=== PATIENT | male | born 1985 | race Caucasian/White ===

== ENCOUNTER 2018-08-24 21:31 | Emergency (ER) | payer MEDICAID ==
[~2018-08-24] VITALS: Ht 175.3 cm; Wt 86.0 kg
[2018-08-24] MEDS ORDERED: SODIUM CHLORIDE 0.9% 1,000 ML IV ONE (21:44)
[2018-08-24 22:14] LABS: BASOPHILS % 0.8 % (0.0-2.0); EOSINOPHILS % 1.3 % (0.0-5.0); HEMATOCRIT. 44.2 % (42.0-52.0); HEMOGLOBIN. 15.1 g/dL (14.0-18.0); LYMPHOCYTES % 34.4 % (20.0-50.0); MEAN CORPUSCULAR HEMOGLOBIN 30.9 pg (28.0-32.0); MEAN CORPUSCULAR VOLUME 90.3 fL (80.0-94.0); MEAN PLATELET VOLUME 8.1 fl (7.4-10.4); MONOCYTES % 8.2 % (2.0-8.0); NEUTROPHILS % 55.3 % (40.0-76.0); PLATELET 231 x1000/uL (130-400); RED BLOOD CELL COUNT 4.89 mill/uL (4.7-6.1); RED CELL DISTRIBUTION WIDTH 14.5 % (11.6-14.6)
[2018-08-24 22:20] LABS: CHLORIDE 106 mEq/L (98-107)
[2018-08-24 22:26] LABS: ETHANOL BLOOD 255 mg/dL
[2018-08-24 22:53] LABS: *AMPHETAMINES SCREEN URINE PRESUMTIVE POSITIVE (NEGATIVE)
[2018-08-24 22:54] LABS: *BARBITURATES SCREEN URINE NEGATIVE (NEGATIVE); *BENZODIAZEPINES SCREEN URINE PRESUMTIVE POSITIVE (NEGATIVE); *COCAINE SCREEN URINE NEGATIVE (NEGATIVE); CANNABINOID URINE SCREEN NEGATIVE (NEGATIVE); METHADONE URINE SCREEN NEGATIVE (NEGATIVE); OPIATES URINE SCREEN NEGATIVE (NEGATIVE); PHENCYCLIDINE URINE SCREEN NEGATIVE (NEGATIVE)
[2018-08-25 07:50] VITALS: BP 120/80
== END 2018-08-25 08:52 | disposition home or self-care (01) ==
LOC: ER 21:31
DX: T40.1X2A Poisoning by heroin, intentional self-harm, initial encounter (principal); T40.4X2A Poisoning by other synthetic narcotics, intentional self-harm, initial encounter; F10.10 Alcohol abuse, uncomplicated; Y90.8 Blood alcohol level of 240 mg/100 ml or more; F15.10 Other stimulant abuse, uncomplicated; Y93.89 Activity, other specified; Y92.89 Other specified places as the place of occurrence of the external cause
CPT/HCPCS: 36415; 80053; 80305; 80320; 85025; 99283; J7030; G0480